=== PATIENT | male | born 1945 | race Caucasian/White ===

== ENCOUNTER 2023-12-14 10:43 | Outpatient (AMB) | payer MEDICARE, SELFPAY ==
--- NOTE | 2023-12-14 10:52 | A.OFFVIS_ITS ---
Intake Vital Signs 12/14/23 10:55 Height 6 ft Weight 242 lb BMI 32.8 BP 146/78 H Blood Pressure Location Rt brachial Position Sitting Pulse 72 Pulse Source Pulse Oximeter Pulse Oximetry (%) 100 Oxygen Delivery Method Room Air Intake Visit Reasons: Shortness of breath Arc Cutter Required: No Pollution Control Chemist: Pollution Control Chemist offered & declined Accompanied by: Self / Same As Patient Allergies Seasonal Allergies Allergy (Unknown, Verified 12/14/23 11:01) sneezing HPI Shortness of breath HPI Details Yoshi is a pleasant 78-year-old male, former minimal smoker, with less than 10 pack year history, underlying hypertension, obstructive sleep apnea (not on CPAP), chronic kidney disease and 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 He was referred by PCP for pulmonary evaluation. He was admitted to [facility] at the beginning of this month and underwent extensive cardiac testing for dyspnea and chest discomfort. He underwent a stress test 11/17/23 which was suggestive of ischemia then had cardiac catheterization performed on 11/21/23 which was unremarkable. D-dimer was not elevated therefore suspicion for PE is low and CTA was not performed. He has had an echo in May of 2023, this report is not available today. He denies any bilateral lower extremity edema, paroxysmal nocturnal dyspnea or orthopnea. He is under the care of [facility] cardiology. He reports progressively worsening dyspnea on moderate exertion over the last few years with intermittent nonproductive cough. He denies any wheezing or chest tightness. He denies any prior history of asthma or other respiratory conditions. He denies any occupational exposures. He denies any pertinent family history. He denies any environment allergies. Of note, he reports being on anticoagulation x1 year after the DVT and was discontinued by Cardiology. He also reports prior sleep study performed over ten years revealed IBAN, but had difficulties with CPAP therapy. He would like to defer at this time. COUNT INCLUDES THE [facility] Social History (Updated 12/14/23 @ 11:05 by Lorrie Goins LPN) Patient Tobacco Use Status: Former Tobacco user Tobacco use type: Cigarette Cigarette Packs Per Day: 1 Years Smoked: 5 Review of Systems Const Denies chills, Denies excessive sweating, Denies fever(s), Denies headache(s) and Denies night sweats Eyes Denies dry eyes, Denies irritation and Denies itchy eyes ENT Reports Normal hearing present, Denies headache(s), Denies nasal congestion, Denies nasal discharge, Denies post nasal drip and Denies sore throat Card Denies chest pain, Denies chest pain at rest, Denies chest pain with activity, Denies claudication, Denies leg edema, Denies orthopnea and Denies paroxysmal nocturnal dyspnea Resp Denies chest congestion, Denies cough, Denies excessive phlegm production, Denies pain on inspiration, Denies pain with cough, Denies stridor and Denies wheezing Musc Denies myalgias Neuro Reports Normal hearing present and Denies headache(s) Endo Denies excessive sweating Danny/Lymph Denies lymphadenopathy Aller/Immun Denies itchy eyes, Denies seasonal rhinorrhea and Denies wheezing Physical Exam Vital Signs: Last Vital Signs Pulse 72 12/14/23 10:55 BP 146/78 H 12/14/23 10:55 Pulse Ox 100 12/14/23 10:55 Oxygen Delivery Method Room Air 12/14/23 10:55 BMI result Body Mass Index 32.8 Const General: cooperative, healthy appearing, comfortable, no acute distress, well developed and alert Nutritional Appearance: obese Orientation/consciousness: patient oriented x3 Limitations: no limitations HEENT Head: Yes normal to inspection, Yes normocephalic and Yes atraumatic Ears: hearing grossly normal bilaterally and external ears normal Eyes General: appearance normal, both eyes and all related structures Eyelids: Yes eyelids normal Sclerae: sclerae normal EOM: EOMs intact bilaterally Neck Neck: Yes normal visual inspection and Yes no lymphadenopathy Lymphatic: no lymphadenopathy noted Chest Chest palpation & inspection: normal inspection of the chest Resp Effort & Inspection: normal respiratory effort, able to speak in complete sentences, no audible wheezes, no cough, no stridor, not tachypneic, no tripod p ositioning and no use of accessory muscles Auscultation: clear to auscultation bilaterally Cardio Jugular venous distension: no JVD Rate: regular rate Rhythm: regular rhythm Skin Other: warm, dry General skin exam: no rashes or lesions noted Neuro General: patient oriented x3 Cranial nerves: Yes Normal hearing present Cognition (Neuro): normal cognition Gait exam (Neuro): Normal gait present Extrem General: Yes normal to inspection, Yes capillary refill normal, Yes no clubbing, cyanosis or edema and Yes no pedal edema Psych Appearance: grossly normal and well kempt Speech and movement: Normal speech and movement present and Clear speech present Affect: normal affect Attitude: cooperative Thought process: Normal thought process present Thought content: Normal thought content present Insight: Good insight present (Psych) Judgement: Good judgement present (Psych) Assessment & Plan Assessment & Plan (1) Dyspnea: Code(s): R06.00 - Dyspnea, unspecified (2) Cough: Code(s): R05.9 - Cough, unspecified Plan Yoshi underwent extensive cardiac workup while admitted of [facility] at the beginning of the month, with no significant findings for dyspnea. Will send for PFT to evaluate for any obstructive or restrictive defect. Will have patient sign release for records for [facility], including any chest imaging. Will likely need to send for chest CT to evaluate for any parenchymal disease contributing to dyspnea and cough. Will empirically trial Dulera. Inhaler technique reviewed and importance of oral hygiene was discussed. All questions were answered and patient is in agreement of plan will follow-up to review response to inhaler in results of PFT. Orders: Orders PFT pulmonary function test Today R06.00 - Dyspnea, unspecified Medications: New mometasone-formoterol 50-5 mcg/actuation (Dulera) 2 puffs inhalation Q12H 13 grams 3RF Coding Level of Care Code New Pt Level 4 (76902) Diagnoses Dyspnea R06.00 Cough R05.9
[2023-12-14 10:55] VITALS: BP 146/78; PULSE 72; O2SAT 100; BMI 32.8
== END 2023-12-14 11:33 | disposition home or self-care (01) ==
PROVIDERS: PCP Internal Medicine; Visit Provider Nurse Practitioner Family
DX: R06.00 Dyspnea, unspecified (principal); R05.9 Cough, unspecified
CPT/HCPCS: 99204

== ENCOUNTER → 2023-12-14 10:43 | Outpatient (BNVA) | payer MEDICARE, SELFPAY | PROVIDERS: PCP Internal Medicine; Visit Provider Nurse Practitioner Family | DX: R06.00 Dyspnea, unspecified (principal); R05.9 Cough, unspecified | CPT/HCPCS: 99202 ==

== ENCOUNTER 2023-12-15 08:28 | Outpatient (REF) | payer MEDICARE, SELFPAY ==
[2023-12-15 09:26] VITALS: PULSE 60; RESP 16; O2SAT 98
--- NOTE | 2023-12-15 10:26 | PFT_ITS ---
Flows: FEV1: 112 % of predicted at 3.49 L FVC: 106 % of predicted at 4.49 L FEV1/FVC: 78 % Bronchodilator response: Absent Volumes: No lung volume measurements available secondary to a technical issue. Diffusion capacity: Mildly decreased. Impression: No obstructive ventilatory defect. No bronchodilator response. Decreased diffusion capacity suggests emphysema. MTDD
== END 2023-12-15 08:29 | disposition home or self-care (01) ==
LOC: HO.RESP 08:28
PROVIDERS: PCP Internal Medicine; Visit Provider Nurse Practitioner Family
DX: R06.00 Dyspnea, unspecified (principal)
CPT/HCPCS: 94010; 94640; 94727; 94729

== ENCOUNTER → 2023-12-15 10:26 | Outpatient (BNV) | payer MEDICARE, SELFPAY | PROVIDERS: PCP Internal Medicine; Visit Provider Internal Medicine Pulmonary Disease | DX: R06.00 Dyspnea, unspecified (principal) | CPT/HCPCS: 94060; 94729 ==

== ENCOUNTER 2023-12-28 11:18 | Outpatient (AMB) | payer MEDICARE, SELFPAY ==
[2023-12-28 11:22] VITALS: BP 132/68; PULSE 60; O2SAT 100; BMI 33.0
--- NOTE | 2023-12-28 11:22 | A.OFFVIS_ITS ---
Intake Vital Signs 12/28/23 11:22 Height 6 ft Weight 243 lb BMI 33.0 BP 132/68 Blood Pressure Location Rt brachial Position Sitting Pulse 60 Pulse Source Pulse Oximeter Pulse Oximetry (%) 100 Oxygen Delivery Method Room Air Intake Visit Reasons: Shortness of breath Software Developer Manager Required: No Sustainability Officer: Sustainability Officer offered & declined Accompanied by: Self / Same As Patient Allergies Seasonal Allergies Allergy (Unknown, Verified 12/28/23 11:26) sneezing Medication List - Last Reconciled 12/28/23 by Lorrie Goins LPN fluticasone furoate-vilanterol 100-25 mcg/dose (Breo Ellipta) 1 inh inhalation DAILY HPI Shortness of breath HPI Details Yoshi is a pleasant 78-year-old male, former minimal smoker, with less than 10 pack year history, underlying hypertension, obstructive sleep apnea (not on CPAP), chronic kidney disease and 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 He was referred by PCP for pulmonary evaluation for progressively worsening dyspnea. At the last visit, he was started on Breo. Due to insurance issues patient has been using less than one week, so unable to determine response. He continues to report dyspnea and intermittent nonproductive cough. Denies wheezing, cough or chest tightness. Today he presents to review results of PFT. [facility] Social History (Updated 12/28/23 @ 11:27 by Lorrie Goins LPN) Patient Tobacco Use Status: Former Tobacco user Tobacco use type: Cigarette Cigarette Packs Per Day: 1 Years Smoked: 5 Smoked in Last 30 Days: No Review of Systems Const Denies chills, Denies excessive sweating, Denies fever(s), Denies headache(s) and Denies night sweats Eyes Denies dry eyes, Denies irritation and Denies itchy eyes ENT Reports Normal hearing present, Denies headache(s), Denies nasal congestion, Denies nasal discharge, Denies post nasal drip and Denies sore throat Card Denies chest pain, Denies chest pain at rest, Denies chest pain with activity, Denies claudication, Denies leg edema, Denies orthopnea and Denies paroxysmal nocturnal dyspnea Resp Denies chest congestion, Denies excessive phlegm production, Denies pain on inspiration, Denies pain with cough, Denies stridor and Denies wheezing Musc Denies myalgias Neuro Reports Normal hearing present and Denies headache(s) Endo Denies excessive sweating Danny/Lymph Denies lymphadenopathy Aller/Immun Denies itchy eyes, Denies seasonal rhinorrhea and Denies wheezing Physical Exam Vital Signs: Last Vital Signs Pulse 60 12/28/23 11:22 BP 132/68 12/28/23 11:22 Pulse Ox 100 12/28/23 11:22 Oxygen Delivery Method Room Air 12/28/23 11:22 BMI result Body Mass Index 33.0 Const General: cooperative, healthy appearing, comfortable, no acute distress, well developed and alert Nutritional Appearance: obese Orientation/consciousness: patient oriented x3 Limitations: no limitations HEENT Head: Yes normal to inspection, Yes normocephalic and Yes atraumatic Ears: hearing grossly normal bilaterally and external ears normal Eyes General: appearance normal, both eyes and all related structures Eyelids: Yes eyelids normal Sclerae: sclerae normal EOM: EOMs intact bilaterally Neck Neck: Yes normal visual inspection and Yes no lymphadenopathy Lymphatic: no lymphadenopathy noted Chest Chest palpation & inspection: normal inspection of the chest Resp Effort & Inspection: normal respiratory effort, able to speak in complete sentences, no audible wheezes, no cough, no stridor, not tachypneic, no tripod positioning and no use of accessory muscles Auscultation: clear to auscultation bilaterally Cardio Jugular venous distension: no JVD Rate: regular rate Rhythm: regular rhythm Skin Other: warm, dry General skin exam: no rashes or lesions noted Neuro General: patient oriented x3 Cranial nerves: Yes Normal hearing present Cognition (Neuro): normal cognition Gait exam (Neuro): Normal gait present Extrem General: Yes normal to inspection, Yes capillary refill normal, Yes no clubbing, cyanosis or edema and Yes no pedal edema Psych Appearance: grossly normal and well kempt Speech and movement: Normal speech and movement present and Clear speech present Affect: normal affect Attitude: cooperative Thought process: Normal thought process present Thought content: Normal thought content present Insight: Good insight present (Psych) Judgement: Good judgement present (Psych) Assessment & Plan Assessment & Plan (1) Dyspnea: Code(s): R06.00 - Dyspnea, unspecified (2) Cough: Code(s): R05.9 - Cough, unspecified Plan Yoshi underwent extensive cardiac workup while admitted of [facility] at the beginning of the month, with no significant findings for dyspnea. Reviewed PFT which revealed normal spirometry with no response to bronchodilator. DLCO was moderate decreased at 67%. Will send for chest CT to assess for any parenchymal disease, such as emphysema. Advised to continue Breo, as he just started. All questions were answered and patient is in agreement of plan will follow-up to review response to inhaler in results of chest CT. Coding Level of Care Code Est Pt Level 4 (20259) Diagnoses Dyspnea R06.00 Cough R05.9
== END 2023-12-28 12:11 | disposition home or self-care (01) ==
PROVIDERS: PCP Internal Medicine; Visit Provider Nurse Practitioner Family
DX: R06.00 Dyspnea, unspecified (principal); R05.9 Cough, unspecified
CPT/HCPCS: 99214

== ENCOUNTER → 2023-12-28 11:18 | Outpatient (BNVA) | payer MEDICARE, SELFPAY | PROVIDERS: PCP Internal Medicine; Visit Provider Nurse Practitioner Family | DX: R06.00 Dyspnea, unspecified (principal); R05.9 Cough, unspecified | CPT/HCPCS: 99212 ==